=== PATIENT | male | born 1995 | race Caucasian/White ===

== ENCOUNTER 2018-12-05 16:34 | Emergency (ER) | payer BC, MEDICAID ==
--- NOTE | 2018-12-05 17:05 | EDM.PDOCBH ---
ED HPI GENERAL MEDICAL PROBLEM - General Chief Complaint: Behavioral/Psych Stated Complaint: suicidal threat Time Seen by Provider: 12/05/18 16:39 Source of Information: Reports: Patient, Police History Limitations: Reports: No Limitations - History of Present Illness INITIAL COMMENTS - FREE TEXT/NARRATIVE: Patient is brought in by [employer] after his mother called concerned that the patient would try to harm himself after saying he'd rather kill himself than live here. He currently denies any thoughts of suicide, does not have access to guns, does not have a plan, and denies any thoughts of harm towards anyone else. Father has arrived. Patient has a history of getting extremely angry during arguments and saying things he either does not mean or will not do. Onset: Today, Sudden - Related Data Allergies Allergy/AdvReac Type Severity Reaction Status Date / Time No Known Allergies Allergy Verified 01/19/16 08:19 Home Meds: Home Meds Sertraline HCl [Zoloft] 150 mg PO DAILY 01/15/16 [History] Past Medical History Cardiovascular History: Reports: None Respiratory History: Reports: None Gastrointestinal History: Reports: None Genitourinary History: Reports: None Musculoskeletal History: Reports: Other (See Below) Other Musculoskeletal History: 2nd toe fx Neurological History: Reports: None Psychiatric History: Reports: ADHD, Depression Endocrine/Metabolic History: Reports: None Hematologic History: Reports: None Immunologic History: Reports: None Oncologic (Cancer) History: Reports: None Dermatologic History: Reports: None - Past Surgical History Head Surgeries/Procedures: Reports: None HEENT Surgical History: Reports: Adenoidectomy ED ROS GENERAL - Review of Systems Review Of Systems: See Below Constitutional: Reports: No Symptoms HEENT: Reports: No Symptoms Respiratory: Reports: No Symptoms Cardiovascular: Reports: No Symptoms Endocrine: Reports: No Symptoms GI/Abdominal: Reports: No Symptoms : Reports: No Symptoms Musculoskeletal: Reports: No Symptoms Skin: Reports: No Symptoms Neurological: Reports: No Symptoms Psychiatric: Reports: No Symptoms. Denies: Agitation, Anxiety, Hallucinations, Homicidal Ideation, Suicidal Ideation Hematologic/Lymphatic: Reports: No Symptoms Immunologic: Reports: No Symptoms ED EXAM, BEHAVIORAL HEALTH - Physical Exam Exam: See Below Exam Limited By: No Limitations General Appearance: Alert, WD/WN, No Apparent Distress Neurological: Alert, Normal Mood/Affect, CN II-XII Intact, Normal Cognition, Normal Gait, Normal Reflexes, No Motor/Sensory Deficits, Oriented x 3 Psychiatric: Alert, Normal Affect, Normal Cognition, Normal Mood, Oriented. No : Homicidal Thoughts, Suicidal Plan, Suicidal Thoughts, Auditory Hallucinations , Visual Hallucinations, Grandiose Thoughts COURSE, BEHAVIORAL HEALTH COMP - Course Discharge vs Psych Eval/Treatment:: 12/05/18 17:11 Patient evaluated and I do not feel he is a danger to himself or others at this time. He denies suicidality or homicidality, no hallucinations. He will be with his father ruben who did commit to watching him. He has no desire to harm himself. He states he was just angry with his mother, told her he'd rather kill himself than live with her, but does not actually want to do so. Additional assistance is offered including psychiatric screening. This was declined. Father present during conversation. Departure - Departure Time of Disposition: 17:04 Disposition: Home, Self-Care 01 Condition: Good Clinical Impression: Excessive anger - Discharge Information *PRESCRIPTION DRUG MONITORING PROGRAM REVIEWED*: Not Applicable *COPY OF PRESCRIPTION DRUG MONITORING REPORT IN PATIENT PARDEEP: Not Applicable Instructions: Suicidal Feelings: How to Help Yourself Forms: ED Department Discharge Additional Instructions: Plan 1. Stay with your father ruben 2. If you have any thoughts of harming yourself make sure to call 911, the ER, or suicide hotline 3. Seek out a counselor to follow up any social difficulties you are having 4. Establish with a primary care doctor in [facility] to assist you in any needed medication 5. Please call us at any time if you have any additional questions or concerns - Problem List & Annotations (1) Excessive anger SNOMED Code(s): 398395658 Code(s): R45.4 - IRRITABILITY AND ANGER Status: Acute Priority: Low - Problem List Review Problem List Initiated/Reviewed/Updated: Yes - Assessment/Plan Assessment:: angry outburst suicidal threat Plan: Plan 1. Stay with your father ruben 2. If you have any thoughts of harming yourself make sure to call 911, the ER, or suicide hotline 3. Seek out a counselor to follow up any social difficulties you are having 4. Establish with a primary care doctor in [facility] to assist you in any needed medication 5. Please call us at any time if you have any additional questions or concerns
[2018-12-05 17:09] VITALS: BP 146/90
== END 2018-12-05 17:04 | disposition home or self-care (01) ==
LOC: VM.ED 16:34
DX: R45.851 Suicidal ideations (principal); R45.4 Irritability and anger; F32.9 Major depressive disorder, single episode, unspecified; F90.9 Attention-deficit hyperactivity disorder, unspecified type; Z79.899 Other long term (current) drug therapy
CPT/HCPCS: 99283

== ENCOUNTER 2019-08-02 03:44 | Emergency (ER) | payer BC ==
[2019-08-02 03:49] VITALS: BP 141/82; PULSE 101
--- NOTE | 2019-08-08 04:47 | EDM.PDOC ---
ED HPI GENERAL MEDICAL PROBLEM - General Chief Complaint: General Stated Complaint: chest pain, passed out, short of breath Time Seen by Provider: 08/02/19 03:50 Source of Information: Reports: Patient History Limitations: Reports: No Limitations - History of Present Illness INITIAL COMMENTS - FREE TEXT/NARRATIVE: PtYanci presents to ER with complains of musculoskeletal chest pain and lightheadedness when going from sitting to standing. He states that he felt like he might pass out. He states that the symptoms resolved shortly after he stood up. The pain was worse with movement and deep breathing. He currently is not experiencing any symptoms on arrival to ER. Denies any nausea, vomiting, or current lightheadedness. No palpitations. Onset: Today Onset Date: 08/02/19 Location: Reports: Chest, Generalized Associated Symptoms: Reports: Chest Pain, Other (lightheadedness) - Related Data Allergies Allergy/AdvReac Type Severity Reaction Status Date / Time No Known Allergies Allergy Verified 08/02/19 03:44 Home Meds: Home Meds . [No Known Home Meds] 08/02/19 [History] Past Medical History Cardiovascular History: Reports: None Respiratory History: Reports: None Gastrointestinal History: Reports: None Genitourinary History: Reports: None Musculoskeletal History: Reports: Other (See Below) Other Musculoskeletal History: 2nd toe fx Neurological History: Reports: None Psychiatric History: Reports: ADHD, Depression Endocrine/Metabolic History: Reports: None Hematologic History: Reports: None Immunologic History: Reports: None Oncologic (Cancer) History: Reports: None Dermatologic History: Reports: None - Past Surgical History Head Surgeries/Procedures: Reports: None HEENT Surgical History: Reports: Adenoidectomy Social & Family History - Tobacco Use Smoking Status *Q: Current Every Day Smoker Years of Tobacco use: 5 Packs/Tins Daily: 1 ED ROS GENERAL - Review of Systems Review Of Systems: See Below Constitutional: Reports: No Symptoms HEENT: Reports: No Symptoms Respiratory: Reports: Pleuritic Chest Pain Cardiovascular: Reports: Lightheadedness Endocrine: Reports: No Symptoms GI/Abdominal: Reports: No Symptoms : Reports: No Symptoms Musculoskeletal: Reports: No Symptoms Skin: Reports: No Symptoms Neurological: Reports: No Symptoms Psychiatric: Reports: No Symptoms Hematologic/Lymphatic: Reports: No Symptoms Immunologic: Reports: No Symptoms ED EXAM, GENERAL - Physical Exam Exam: See Below General Appearance: Alert, WD/WN, No Apparent Distress Eye Exam: Bilateral Eye: EOMI, Normal Fundi, Normal Inspection, PERRL Throat/Mouth: Normal Inspection, Normal Lips, Normal Teeth, Normal Gums, Normal Oropharynx, Normal Voice, No Airway Compromise Head: Atraumatic, Normocephalic Neck: Normal Inspection, Supple, Non-Tender, Full Range of Motion Respiratory/Chest: No Respiratory Distress, Lungs Clear, Normal Breath Sounds, No Accessory Muscle Use, Chest Non-Tender Cardiovascular: Normal Peripheral Pulses, Regular Rate, Rhythm, No Edema, No Gallop, No JVD, No Murmur, No Rub Peripheral Pulses: 4+: Radial (L) GI/Abdominal: Normal Bowel Sounds, Soft, Non-Tender, No Organomegaly, No Distention, No Abnormal Bruit, No Mass, Pelvis Stable (Male) Exam: Deferred Extremities: Normal Inspection, Normal Range of Motion, Non-Tender, No Pedal Edema, Normal Capillary Refill Neurological: Alert, Oriented, CN II-XII Intact, Normal Cognition, Normal Gait, Normal Reflexes, No Motor/Sensory Deficits Psychiatric: Normal Affect, Normal Mood Skin Exam: Warm, Dry, Normal Color Course - Vital Signs Last Recorded V/S: Last Vital Signs Temp 36.5 C 08/02/19 03:46 Pulse 101 H 08/02/19 03:46 Resp 16 08/02/19 03:46 BP 141/82 H 08/02/19 03:46 Pulse Ox 96 08/02/19 03:46 Departure - Departure Time of Disposition: 04:15 Disposition: Home, Self-Care 01 Clinical Impression: Vasovagal episode - Discharge Information Instructions: Nonspecific Chest Pain, [id number] Referrals: PCP,None [Primary Care Provider] - Forms: ED Department Discharge Additional Instructions: Home to rest. Drink plenty of fluids. Minimize consumption of caffeinated beverages/energy drinks. Return to ER if you have worsening chest pain or shortness of breath, otherwise follow-up in clinic as needed. Sepsis Event Note - Evaluation Sepsis Screening Result: No Definite Risk - Assessment/Plan Plan: Home to rest. Drink plenty of fluids. Minimize consumption of caffeinated beverages/energy drinks. Return to ER if you have worsening chest pain or shortness of breath, otherwise follow-up in clinic as needed.
== END 2019-08-02 04:08 | disposition home or self-care (01) ==
LOC: VM.ED 03:44
DX: R55 Syncope and collapse (principal); F17.210 Nicotine dependence, cigarettes, uncomplicated
CPT/HCPCS: 93005; 99284-25

== ENCOUNTER 2021-04-11 02:34 | Emergency (ER) | payer BC, OTHER ==
[2021-04-11 03:31] VITALS: BP 131/89; PULSE 109
[2021-04-11 03:51] LABS: BARBITURATE SCREEN,URINE NEGATIVE (NEGATIVE); BENZODIAZEPINES SCREEN,URINE NEGATIVE (NEGATIVE); BUPRENORPHINE SCREEN,URINE NEGATIVE (NEGATIVE); METHAMPHETAMINE SCREEN, URINE NEGATIVE (NEGATIVE); THC SCREEN,URINE 50 NG/ML POSITIVE (NEGATIVE)
[2021-04-11 04:15] LABS: CHLORIDE,CL 105 mmol/L (98-107); SODIUM,NA 142 mmol/L (136-145)
[2021-04-11 04:16] LABS: ACETAMINOPHEN 0 ug/ml (10-30); ANION GAP 18.6 mmol/L (5-15)
--- NOTE | 2021-04-11 04:40 | EDM.PDOCBH ---
ED HPI GENERAL MEDICAL PROBLEM - General Chief Complaint: Behavioral/Psych Stated Complaint: mental health eval Time Seen by Provider: 04/11/21 02:50 Source of Information: Reports: Patient History Limitations: Reports: No Limitations - History of Present Illness INITIAL COMMENTS - FREE TEXT/NARRATIVE: Patient is brought to the emergency department tonight by the local Police Lili nick with concerns of a mental health evaluation. This patient has been drinking a small amount of alcohol he relates tonight. He was out and about on the town and was causing some disturbance so the police were summoned. When the police got there he was quite agitated and concerned about really his entire life. He had made some statements that he is sometimes suicidal therefore he was brought to the emergency department. Upon arrival the patient is alert and interactive and cooperative. He does not appear to be overtly intoxicated. He relates that he struggles on a daily basis with his entire life because he has 2 felonies 1 for gross sexual in position and another for making terroristic threats to a minor. He struggles with getting a job. He does not see anything positive in his life. He constantly sees negative he does not see any reason to continue on with life. He contemplates suicide or has suicidal ideation pretty much on the daily basis but he has no intent. He has never tried to harm himself in the past 4 years. 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 He did not take any medications and attempt to harm himself or do any other actions to harm himself tonight. He denies any homicidal ideation. He does relate that suicide is not is scary to him on a daily basis but he does not have any active plans at this time to harm himself. He denies any other physical complaints. - Related Data Allergies Allergy/AdvReac Type Severity Reaction Status Date / Time No Known Allergies Allergy Verified 04/11/21 03:11 Home Meds: Home Meds . [No Known Home Meds] 08/02/19 [History] Past Medical History Cardiovascular History: Reports: None Respiratory History: Reports: None Gastrointestinal History: Reports: None Genitourinary History: Reports: None Musculoskeletal History: Reports: Other (See Below) Other Musculoskeletal History: 2nd toe fx Neurological History: Reports: None Psychiatric History: Reports: ADHD, Depression Endocrine/Metabolic History: Reports: None Hematologic History: Reports: None Immunologic History: Reports: None Oncologic (Cancer) History: Reports: None Dermatologic History: Reports: None - Past Surgical History Head Surgeries/Procedures: Reports: None HEENT Surgical History: Reports: Adenoidectomy GI Surgical History: Reports: Hernia Repair/Other Social & Family History - Tobacco Use Tobacco Use Status *Q: Current Every Day Tobacco User Years of Tobacco use: 5 Packs/Tins Daily: 1 - Recreational Drug Use Recreational Drug Use: Yes Drug Use in Last 12 Months: Yes Recreational Drug Type: Reports: Marijuana/Hashish Recreational Drug Use Frequency: Daily ED ROS GENERAL - Review of Systems Review Of Systems: Comprehensive ROS is negative, except as noted in HPI. ED EXAM, BEHAVIORAL HEALTH - Physical Exam Exam: See Below Exam Limited By: No Limitations General Appearance: Alert, WD/WN, No Apparent Distress Eye Exam: Bilateral Eye: EOMI Ears: Normal External Exam Nose: Normal Inspection Throat/Mouth: Normal Inspection Head: Atraumatic Neck: Normal Inspection Respiratory/Chest: No Respiratory Distress, Lungs Clear, Normal Breath Sounds, No Accessory Muscle Use, Chest Non-Tender Cardiovascular: Normal Peripheral Pulses, Regular Rate, Rhythm GI/Abdominal: Normal Bowel Sounds, Soft, Non-Tender (Male) Exam: Deferred Rectal (Males) Exam: Deferred Back Exam: Normal Inspection, Full Range of Motion Extremities: Normal Inspection, No Pedal Edema Neurological: Alert, Normal Mood/Affect, No Motor/Sensory Deficits Psychiatric: Alert, Normal Affect, Oriented. No: Agitated, Disoriented, Poor Eye Contact, Withdrawn, Suicidal Plan, Suicidal Thoughts, Tangential Thoughts, Auditory Hallucinations, Visual Hallucinations, Grandiose Thoughts, Pressured Speech, Paranoid Thoughts, Threatening Behavior Skin Exam: Warm, Dry, Intact, Normal color, No rash COURSE, BEHAVIORAL HEALTH COMP - Course Vital Signs: Last Vital Signs Temp 99.4 F 04/11/21 02:35 Pulse 109 H 04/11/21 02:35 Resp 16 04/11/21 02:35 BP 131/89 04/11/21 02:35 Pulse Ox 98 04/11/21 02:35 Orders, Labs, Meds: Laboratory Tests 04/11/21 04/11/21 04/11/21 Range/Units 03:35 03:35 03:37 WBC 8.9 (4.0-10.0) x10^3/uL RBC 5.02 (4.5-6.0) x10^6/uL Hgb 16.2 (14.0-18.0) g/dL Hct 44.8 (40.0-52.0) % MCV 89.2 (78.0-93.0) fL MCH 32.3 H (26.0-32.0) pg MCHC 36.2 H (32.0-36.0) g/dL RDW Coeff of Zachary 11.5 (10.0-15.0) % Plt Count 172 (130-400) x10^3/uL Immature Gran % (Auto) 0.10 (0.00-0.43) % Neut % (Auto) 81.3 H (50.0-80.0) % Lymph % (Auto) 13.0 L (25.0-50.0) % [place] % (Auto) 5.3 (2.0-11.0) % Eos % (Auto) 0.2 (0.0-4.0) % Baso % (Auto) 0.1 L (0.2-1.2) % Neut # (Auto) 7.2 (1.8-7.7) x10^3/uL Lymph # (Auto) 1.2 (1.0-4.8) x10^3/uL [place] # (Auto) 0.5 (0.0-0.8) x10^3/uL Eos # (Auto) 0.0 (0.0-0.5) x10^3/uL Baso # (Auto) 0.0 (0.0-0.2) x10^3/uL Immature Gran # (Auto) 0.01 (0.00-0.07) x10^3/uL Sodium (136-145) mmol/L Potassium (3.5-5.1) mmol/L Chloride (98-107) mmol/L Carbon Dioxide (21-32) mmol/L Anion Gap (5-15) mmol/L BUN (7-18) mg/dL Creatinine (0.70-1.30) mg/dL Est Cr Clr Drug Dosing mL/min Estimated GFR (MDRD) Glucose (70-99) mg/dL Calcium (8.5-10.1) mg/dL Corrected Calcium (8.5-10.1) mg/dL Total Bilirubin (0.2-1.0) mg/dL AST (15-37) U/L ALT (16-63) U/L Alkaline Phosphatase (46-116) U/L Total Protein (6.4-8.2) g/dL Albumin (3.4-5.0) g/dL Globulin Albumin/Globulin Ratio TSH, Ultra Sensitive (0.358-3.74) uIU/mL Urine Color Yellow (YELLOW) Urine Appearance Clear (CLEAR) Urine pH 5.5 (5.0-8.0) Ur Specific [place] 1.015 Urine Protein 30 H (NEGATIVE) mg/dL Urine Glucose (UA) Negative (NEGATIVE) mg/dL Urine Ketones Negative (NEGATIVE) mg/dL Urine Occult Blood Negative (NEGATIVE) Urine Nitrite Negative (NEGATIVE) Urine Bilirubin Negative (NEGATIVE) Urine Urobilinogen 0.2 (0.2) EU/dL Ur Leukocyte Esterase Negative (NEGATIVE) U Hyaline Cast (Auto) Few Urine RBC 0-5 (NOT SEEN) /HPF Urine WBC 0-5 (NOT SEEN) /HPF Ur Squamous Epith Cells Few H (NOT SEEN) /HPF Urine Bacteria Not seen (NOT SEEN) /HPF Urine Mucus Not seen (NOT SEEN) /LPF Salicylates (2.8-20(Therapeutic)) mg/dL Urine Opiates Screen Negative (NEGATIVE) Ur Buprenorphine Scrn Negative (NEGATIVE) Ur Oxycodone Screen Negative (NEGATIVE) Urine Methadone Screen Negative (NEGATIVE) Acetaminophen (10-30) ug/ml Ur Barbiturates Screen Negative (NEGATIVE) Ur Phencyclidine Scrn Negative (NEGATIVE) Ur Amphetamine Screen Negative (NEGATIVE) U Methamphetamines Scrn Negative (NEGATIVE) Urine MDMA Screen Negative (NEGATIVE) U Benzodiazepines Scrn Negative (NEGATIVE) U Cocaine Metab Screen Negative (NEGATIVE) U Marijuana (THC) Screen Positive H (NEGATIVE) Ethyl Alcohol (0-3) mg/dL 04/11/21 04/11/21 04/11/21 Range/Units 03:37 03:37 03:37 WBC (4.0-10.0) x10^3/uL RBC (4.5-6.0) x10^6/uL Hgb (14.0-18.0) g/dL Hct (40.0-52.0) % MCV (78.0-93.0) fL MCH (26.0-32.0) pg MCHC (32.0-36.0) g/dL RDW Coeff of Zachary (10.0-15.0) % Plt Count (130-400) x10^3/uL Immature Gran % (Auto) (0.00-0.43) % Neut % (Auto) (50.0-80.0) % Lymph % (Auto) (25.0-50.0) % [place] % (Auto) (2.0-11.0) % Eos % (Auto) (0.0-4.0) % Baso % (Auto) (0.2-1.2) % Neut # (Auto) (1.8-7.7) x10^3/uL Lymph # (Auto) (1.0-4.8) x10^3/uL [place] # (Auto) (0.0-0.8) x10^3/uL Eos # (Auto) (0.0-0.5) x10^3/uL Baso # (Auto) (0.0-0.2) x10^3/uL Immature Gran # (Auto) (0.00-0.07) x10^3/uL Sodium 142 (136-145) mmol/L Potassium 3.6 (3.5-5.1) mmol/L Chloride 105 (98-107) mmol/L Carbon Dioxide 22 (21-32) mmol/L Anion Gap 18.6 H (5-15) mmol/L BUN 14 (7-18) mg/dL Creatinine 1.1 (0.70-1.30) mg/dL Est Cr Clr Drug Dosing 111.24 mL/min Estimated GFR (MDRD) > 60 Glucose 93 (70-99) mg/dL Calcium 8.9 (8.5-10.1) mg/dL Corrected Calcium 8.5 (8.5-10.1) mg/dL Total Bilirubin 0.5 (0.2-1.0) mg/dL AST 20 (15-37) U/L ALT 26 (16-63) U/L Alkaline Phosphatase 91 (46-116) U/L Total Protein 7.5 (6.4-8.2) g/dL Albumin 4.5 (3.4-5.0) g/dL Globulin 3.0 Albumin/Globulin Ratio 1.50 TSH, Ultra Sensitive 1.026 (0.358-3.74) uIU/mL Urine Color (YELLOW) Urine Appearance (CLEAR) Urine pH (5.0-8.0) Ur Specific [place] Urine Protein (NEGATIVE) mg/dL Urine Glucose (UA) (NEGATIVE) mg/dL Urine Ketones (NEGATIVE) mg/dL Urine Occult Blood (NEGATIVE) Urine Nitrite (NEGATIVE) Urine Bilirubin (NEGATIVE) Urine Urobilinogen (0.2) EU/dL Ur Leukocyte Esterase (NEGATIVE) U Hyaline Cast (Auto) Urine RBC (NOT SEEN) /HPF Urine WBC (NOT SEEN) /HPF Ur Squamous Epith Cells (NOT SEEN) /HPF Urine Bacteria (NOT SEEN) /HPF Urine Mucus (NOT SEEN) /LPF Salicylates 3.9 (2.8-20(Therapeutic)) mg/dL Urine Opiates Screen (NEGATIVE) Ur Buprenorphine Scrn (NEGATIVE) Ur Oxycodone Screen (NEGATIVE) Urine Methadone Screen (NEGATIVE) Acetaminophen 0 L (10-30) ug/ml Ur Barbiturates Screen (NEGATIVE) Ur Phencyclidine Scrn (NEGATIVE) Ur Amphetamine Screen (NEGATIVE) U Methamphetamines Scrn (NEGATIVE) Urine MDMA Screen (NEGATIVE) U Benzodiazepines Scrn (NEGATIVE) U Cocaine Metab Screen (NEGATIVE) U Marijuana (THC) Screen (NEGATIVE) Ethyl Alcohol 85 H (0-3) mg/dL Re-Assessment/Re-Exam: The patient's laboratory evaluation is rather unremarkable. He has a mild elevated alcohol at 85. He does not appear intoxicated. He has no suicidal intent ideations plan or considerations at this time. He clearly struggles with these thoughts and ideas on a daily basis but currently is not suicidal. The patient did discuss with Domenico at the [facility] [place] over the phone and was evaluated and at this time no placement was needed and will follow up with the [facility]. The patient was discharged with his father and he does contract for safety. He is not suicidal at the time of discharge. He is alert cooperative interactive in a very pleasant gentleman to visit with. Departure - Departure Time of Disposition: 04:35 Disposition: Home, Self-Care 01 Clinical Impression: Suicidal thoughts - Discharge Information Instructions: Suicidal Feelings: How to Help Yourself, Helping Someone Who Is Suicidal Referrals: PCP,None [Primary Care Provider] - Forms: ED Department Discharge Additional Instructions: The [facility] will contact you on tuesday. Contract for safety at this time. If you develop suicidal thoughts that you have intent on acting on feelings you will contact 911 or contact the [facility] crisis line [phone]. Return to the ED if new or worsening symptoms. Recheck with PCP in the next week. Sepsis Event Note (ED) - Evaluation Sepsis Screening Result: No Definite Risk
== END 2021-04-11 04:40 | disposition home or self-care (01) ==
LOC: VM.ED 02:34
DX: F10.129 Alcohol abuse with intoxication, unspecified (principal)
CPT/HCPCS: 36415; 80053; 80143; 80179; 80305-QW; 80307; 81001; 84443; 85025; 99284; 99285